=== PATIENT | male | born 1965 | race Hispanic/Latino ===

== ENCOUNTER 2017-08-23 21:28 | Emergency (ER) | payer OTHER ==
[2017-08-23] MEDS ORDERED: CYCLOBENZAPRINE HCL 10 MG TABLET ONE (23:29)
== END 2017-08-23 23:54 | disposition home or self-care (01) ==
LOC: EDH 21:28
DX: S13.4XXA Sprain of ligaments of cervical spine, initial encounter (principal); R10.9 Unspecified abdominal pain; V59.59XA Passenger in pick-up truck or van injured in collision with other motor vehicles in traffic accident, initial encounter; Y93.89 Activity, other specified; Y92.89 Other specified places as the place of occurrence of the external cause; Y99.8 Other external cause status
CPT/HCPCS: 72040